=== PATIENT | female | born 1995 | race Caucasian/White ===

== ENCOUNTER 2016-12-01 00:59 | Inpatient (IN) | payer OTHER ==
[~2016-12-01] VITALS: Ht 165.1 cm; Wt 52.0 kg
[2016-12-01] VITALS (8 sets, daily range): BP systolic 98–138; BP diastolic 58–76; PULSE 78–119; RESP 16–18; TEMP 97.9–100; O2SAT 97–100
[2016-12-01] MEDS ORDERED: SODIUM CHLOR 0.9% 1000 ML INJ 1,000 ML IV SCH (01:43)
[2016-12-01] MEDS ORDERED: CLINDAMYCIN INJ 600 MG in SODIUM CHLORIDE 0.9% INJ 100 ML IV ONE (01:45)
[2016-12-01] MEDS ORDERED: SODIUM CHLORIDE 0.9% FLUSH 10 ML FLUSH IV FLUSH PRN ×2 (01:45→05:15)
[2016-12-01] MEDS ORDERED: MORPHINE SULFATE 4 MG/ML INJ IV PUSH ONE (01:45)
--- NOTE | 2016-12-01 02:11 | PD ---
HPI Chief Complaint: ENT Complaint Time Seen by Provider: 01:39 Travel History International Travel<30 days: No Contact w/Intl Traveler<30days: No Traveled to known affect area: No History of Present Illness HPI 21-year-old female here for evaluation of sore throat, right facial swelling, right submandibular swelling, fever. Patient reports URI symptoms about a week ago. For the last 2 days she has been having sore throat, right facial pain and swelling. She is able to swallow, however she states it is somewhat difficult and hurts. No history of IVDU. She has been taking a moderate amount of ibuprofen over the last 2 days with only mild improvement in pain. [facility] Past Medical History Medical History: Denies Significant Hx Tetanus Vaccination: < 5 Years Influenza Vaccination: No ?: Not LMP: 12/01/16 Past Surgical History Ear Surgery: Yes (tubes in ears as a child. ) Tonsillectomy: Yes (T&A) Social History Alcohol Use: Yes (socially) Tobacco Use: No (quit a few weeks ago) Substance Use: No Allergies-Medications (Allergen,Severity, Reaction): Coded Allergies: No Known Drug Allergies (Verified Allergy, Unknown, 12/01/16) Review of Systems Except as stated in HPI: all other systems reviewed are Neg Physical Exam Narrative GENERAL: Well-developed, well-nourished, no apparent distress. SKIN: Focused skin assessment warm/dry. HEAD: Normocephalic. Mild right cheek and right submandibular swelling. No induration. No overlying warmth or erythema. EYES: Pupils equal and round. No scleral icterus. No injection or drainage. ENT: Mucous membranes pink and moist. Normal dentition. Pharynx is erythematous without purulence or exudates. Uvula is midline. Normal phonation. No drooling or stridor. No sublingual swelling. Right tympanic membrane and external auditory canals normal. Left external auditory canal is normal. I am unable to visualize the left tympanic membrane secondary to cerumen impaction. NECK: Trachea midline. No JVD. No nuchal rigidity. Mild right cheek and right submandibular swelling without induration, warmth, or erythema. CARDIOVASCULAR: Tachycardic, rate 104, regular. RESPIRATORY: No accessory muscle use. Clear to auscultation. Breath sounds equal bilaterally. GASTROINTESTINAL: Abdomen soft, non-tender, nondistended. MUSCULOSKELETAL: No obvious deformities. No clubbing. No cyanosis. No edema. NEUROLOGICAL: Awake and alert. No obvious cranial nerve deficits. Motor grossly within normal limits. Normal speech. PSYCHIATRIC: Appropriate mood and affect; insight and judgment normal. Data Data Last Documented VS Vital Signs Date Time Temp Pulse Resp B/P (MAP) Pulse Ox O2 Delivery O2 Flow Rate FiO2 12/01/16 04:01 119 18 123/76 (92) 100 Room Air 12/01/16 01:45 99.0 Orders Orders Basic Metabolic Panel (Bmp) (12/01/16 01:43) Beta Hcg (Quant/Titer) (12/01/16 01:43) Complete Blood Count With Diff (12/01/16 01:43) Prothrombin Time / Inr (Pt) (12/01/16 01:43) Act Partial Throm Time (Ptt) (12/01/16 01:43) Iv Access Insert/Monitor (12/01/16 01:43) Ecg Monitoring (12/01/16 01:43) Oximetry (12/01/16 01:43) Sodium Chlor 0.9% 1000 Ml Inj (Ns 1000 M (12/01/16 01:43) Sodium Chloride 0.9% Flush (Ns Flush) (12/01/16 01:45) Morphine Inj (Morphine Inj) (12/01/16 01:45) Clindamycin Inj (Cleocin Inj) (12/01/16 01:45) Ct Soft Tiss Neck W Iv Cont (12/01/16 ) Group A Rapid Strep Screen (12/01/16 01:43) Ketorolac Inj (Toradol Inj) (12/01/16 02:45) Strep Culture (Group A) (12/01/16 01:50) Iohexol 350 Inj (Omnipaque 350 Inj) (12/01/16 03:01) Dexamethasone Inj (Decadron Inj) (12/01/16 04:00) Ceftriaxone Inj (Rocephin Inj) (12/01/16 04:00) Labs Laboratory Tests Test 12/01/16 01:50 White Blood Count 17.8 TH/MM3 Red Blood Count 4.52 MIL/MM3 Hemoglobin 14.1 GM/DL Hematocrit 41.7 % Mean Corpuscular Volume 92.3 FL Mean Corpuscular Hemoglobin 31.2 PG Mean Corpuscular Hemoglobin Concent 33.8 % Red Cell Distribution Width 12.6 % Platelet Count 241 TH/MM3 Mean Platelet Volume 9.1 FL Neutrophils (%) (Auto) 82.7 % Lymphocytes (%) (Auto) 10.0 % Monocytes (%) (Auto) 6.8 % Eosinophils (%) (Auto) 0.4 % Basophils (%) (Auto) 0.1 % Neutrophils # (Auto) 14.7 TH/MM3 Lymphocytes # (Auto) 1.8 TH/MM3 Monocytes # (Auto) 1.2 TH/MM3 Eosinophils # (Auto) 0.1 TH/MM3 Basophils # (Auto) 0.0 TH/MM3 CBC Comment DIFF FINAL Differential Comment Prothrombin Time 11.1 SEC Prothromb Time International Ratio 1.0 RATIO Activated Partial Thromboplast Time 30.2 SEC Blood Urea Nitrogen 9 MG/DL Creatinine 0.72 MG/DL Random Glucose 91 MG/DL Calcium Level 9.4 MG/DL Sodium Level 140 MEQ/L Potassium Level 3.6 MEQ/L Chloride Level 105 MEQ/L Carbon Dioxide Level 26.3 MEQ/L Anion Gap 9 MEQ/L Estimat Glomerular Filtration Rate 102 ML/MIN Human Chorionic Gonadotropin, Quant LESS THAN 1 MIU/ML MDM Medical Decision Making Medical Screen Exam Complete: Yes Emergency Medical Condition: Yes Differential Diagnosis Dental abscess, Madi angina, pharyngitis, retropharyngeal abscess, peritonsillar abscess Narrative Course Initial vital signs show heart rate 106, blood pressure 126/74, pulse ox 100% on room air, temporal artery scan of 100F. CBC is remarkable for WBC 17.8 with 83% neutrophils. BMP is unremarkable. CT soft tissue neck: CONCLUSION: 1. Large multiloculated ill-defined low density collection centered in the right pharyngeal mucosal space measuring 3.5 x 2.3 cm and extending cephalad to the retropharyngeal space with associated significant rightward deviation of the inferior oropharynx and associated cervical adenopathy. Group A strep is negative. Patient was given a dose of 600 mg of IV clindamycin and IV morphine shortly after arrival to the emergency department. After CT scan was resulted, case was discussed with on-call ENT Dr. Aldrich. He recommends giving the patient a dose of 12 mg of IV Decadron, 2 g of IV Rocephin. He would like the patient to receive 1 g of IV Rocephin every 12 hours and 900 mg of IV clindamycin every 8 hours. Patient be admitted to the medical service, and he will see the patient in consultation this morning. Case discussed with hospitalist Dr. Parnell who will admit the patient to his service. Diagnosis Primary Impression: Retropharyngeal abscess Admitting Information Admitting Physician Requests: Admit Yvon Cabrera MD Dec 01, 2016 02:11
[2016-12-01 02:27] LABS: AUTOMATED NEUTROPHIL # 14.7 TH/MM3 (1.8-7.7); BASOPHIL % 0.1 % (0.0-2.0); EOSINOPHIL # 0.1 TH/MM3 (0-0.4); EOSINOPHIL % 0.4 % (0.0-4.0); HEMATOCRIT 41.7 % (35.0-46.0); HEMO FLAGS DIFF FINAL; LYMPHOCYTE # 1.8 TH/MM3 (1.0-4.8); MEAN CELL VOLUME 92.3 FL (80.0-100.0); MEAN CORPUSCULAR HEMOGLOBIN 31.2 PG (27.0-34.0); MEAN CORPUSCULAR HGB CONC 33.8 % (32.0-36.0); MONO % 6.8 % (0.0-8.0); NEUT % 82.7 % (16.0-70.0); PLATELET COUNT 241 TH/MM3 (150-450); RED BLOOD COUNT 4.52 MIL/MM3 (4.00-5.30); RED CELL DISTRIBUTION WIDTH 12.6 % (11.6-17.2); WHITE BLOOD COUNT 17.8 TH/MM3 (4.0-11.0)
[2016-12-01 02:35] LABS: APTT (PATIENT) 30.2 SEC (24.3-30.1); PROTHROMBIN TIME - PATIENT 11.1 SEC (9.8-11.6)
[2016-12-01 02:37] LABS: ANION GAP 9 MEQ/L (5-15); BICARBONATE 26.3 MEQ/L (21.0-32.0); BLOOD UREA NITROGEN 9 MG/DL (7-18); CHLORIDE 105 MEQ/L (98-107); GLOMERULAR FILTRATION RATE 102 ML/MIN (>89); POTASSIUM 3.6 MEQ/L (3.5-5.1); SODIUM (NA) 140 MEQ/L (136-145)
[2016-12-01 02:40] LABS: BETA HCG QUANT LESS THAN 1 MIU/ML (0-5)
[2016-12-01] MEDS ORDERED: KETOROLAC TROMETHAMINE 30 MG/ML (IVP) VIAL IV PUSH ONE (02:45)
[2016-12-01] MEDS ORDERED: IOHEXOL 350 MG/ML 10 ML VIAL (for RAD DIAG) IVCONTRAST ONE (03:01)
--- NOTE | 2016-12-01 03:40 | RADRPT ---
EXAM DATE/TIME: 12/01/2016 02:58 [facility] COMPARISON: No previous studies available for comparison. INDICATIONS : Right sided neck swelling. IV CONTRAST: 63 cc Omnipaque 350 (iohexol) IV RADIATION DOSE: 17.33 CTDIvol (mGy) MEDICAL HISTORY : None SURGICAL HISTORY : Tonsillectomy. ENCOUNTER: Initial ACUITY: 3 days PAIN SCALE: 10/10 LOCATION: Right neck TECHNIQUE: Volumetric scanning of the neck was performed. Using automated exposure control and adjustment of th e mA and/or kV according to patient size, radiation dose was kept as low as reasonably achievable to obtain optimal diagnostic quality images. DICOM format image data is available electronically for r eview and comparison. FINDINGS: Examination is abnormal. There is a multiloculated ill-defined low density collection centered in the right pharyngeal mucosal space. This collection extends cephalad along the right retropharyngeal spa ce. The right retropharyngeal component measures approximately 1.5 x 0.7 cm. The collection measures 3.5 x 2.3 cm near the right hyoid bone and displaces the submucosal gland anteriorly. There is signif icant rightward deviation of the inferior oropharynx. There are multiple enlarged level II and III ly mph nodes the on the right. Visualized lung apices are clear. There carotid artery branches are patent. Osseous structures are in tact. The thyroid appears unremarkable. Visualized portions of the brain are unremarkable. CONCLUSION: 1. Large multiloculated ill-defined low density collection centered in the right pharyngeal mucosal s pace measuring 3.5 x 2.3 cm and extending cephalad to the retropharyngeal space with associated signi ficant rightward deviation of the inferior oropharynx and associated cervical adenopathy. Carlos Malloy MD on December 01, 2016 at 3:10 Board Certified Radiologist. This report was verified electronically.
[2016-12-01] MEDS ORDERED: cefTRIAXone INJ 2,000 MG in SODIUM CHLORIDE 0.9% INJ 100 ML IV ONE (04:00)
[2016-12-01] MEDS ORDERED: DEXAMETHASONE SOD PHOS 20 MG/5 ML VIAL IV PUSH ONE (04:00)
[2016-12-01] MEDS ORDERED: MORPHINE SULFATE 4 MG/ML INJ IV PRN (05:15)
[2016-12-01] MEDS ORDERED: ACETAMINOPHEN 325 MG TAB PO PRN ×2 (05:15→10:30)
[2016-12-01] MEDS ORDERED: ACETAMINOPHEN/HYDROcodone 325 MG/5 MG TAB PO PRN (05:15)
[2016-12-01] MEDS ORDERED: NALOXONE HCL 0.4 MG/ML AMP IV PRN (05:15)
[2016-12-01] MEDS ORDERED: cefTRIAXone INJ 1,000 MG in SODIUM CHLORIDE 0.9% INJ 100 ML IV SCH ×2 (05:15→17:00)
[2016-12-01] MEDS ORDERED: ONDANSETRON HCL 4 MG/2 ML VIAL IVP PRN (05:15)
[2016-12-01] MEDS: SODIUM CHLOR 0.9% 1000 ML INJ 1,000 ML IV SCH ×2 (05:33→17:08)
[2016-12-01] MEDS: DEXAMETHASONE SOD PHOS 4 MG/ML VIAL IV PUSH SCH ×3 (06:00→23:07)
[2016-12-01] MEDS: ACETAMINOPHEN/HYDROcodone 325 MG/7.5 MG TAB PO PRN ×3 (06:28→21:27)
[2016-12-01] MEDS: SODIUM CHLORIDE 0.9% FLUSH 10 ML FLUSH IV FLUSH SCH ×2 (09:00→21:26)
--- NOTE | 2016-12-01 10:28 | HHI.HP ---
HPI Service [facility] Primary Care Physician No Primary Care Physician Admission Diagnosis retropharyngeal abscess Diagnoses: (1) Sepsis (2) Retropharyngeal abscess Chief Complaint: Painful Right sided neck swelling Travel History International Travel<30 Days: No Contact w/Intl Traveler <30 Da: No Traveled to Known Affected Are: No Sepsis Criteria SIRS Criteria (2 or more): Heart rate over 90, WBC > 23727, < 4000 or > 10% bands Sepsis Criteria (SIRS+source): Infect source susp/known Criteria Outcome: Meets sepsis criteria History of Present Illness 21-year-old female presented yesterday to the ER for evaluation of worsening and painful right facial swelling as well as sore throat associated with dysphagia of both liquid and solid food along with odynophagia. Patient reported upper respiratory infection symptoms about a week ago, over over the past 2 days she's been having severe sore throat and right facial pain as well as swelling which did not improve with ibuprofen. She also reported subjective fevers. She denies any sick contact. She had no hemoptysis, GI bleeding. She also denies any shortness of breath. Review of Systems Except as stated in HPI: all other systems reviewed are Neg Past Family Social History Past Medical History No previous medical history Past Surgical History Ear Surgery: Yes (tubes in ears as a child. ) Tonsillectomy: Yes (T&A) Reported Medications Ibuprofen when necessary Allergies: Coded Allergies: No Known Drug Allergies (Verified Allergy, Unknown, 12/01/16) Family History She denies any family history of hypertension, diabetes, hyperlipidemia Social History Alcohol Use: Yes (socially) Tobacco Use: No (quit a few weeks ago) Substance Use: No Physical Exam Vital Signs Vital Signs Date Time Temp Pulse Resp B/P (MAP) Pulse Ox O2 Delivery O2 Flow Rate FiO2 12/01/16 08:30 98.4 89 16 117/69 (85) 97 12/01/16 08:19 12/01/16 07:29 98.1 93 16 121/70 (87) 100 Room Air 12/01/16 07:28 16 12/01/16 06:09 21 12/01/16 04:01 119 18 123/76 (92) 100 Room Air 12/01/16 02:15 20 12/01/16 01:45 99.0 119 17 138/76 (96) 100 Room Air 12/01/16 01:41 17 12/01/16 01:01 100.0 106 18 126/74 (91) 100 Physical Exam GENERAL: This is a well-nourished, well-developed patient, in no apparent distress. SKIN: No rashes, ecchymoses or lesions. Cool and dry. HEAD: Atraumatic. Normocephalic. No temporal or scalp tenderness. EYES: Pupils equal round and reactive. Extraocular motions intact. No scleral icterus. No injection or drainage. ENT: Nose without bleeding, purulent drainage or septal hematoma. + tonsillar with exudate. Uvula midline. Airway patent. NECK: Trachea midline. + lymphadenopathy. Supple, +tender right neck, no meningeal signs. CARDIOVASCULAR: Regular rate and rhythm without murmurs, gallops, or rubs. RESPIRATORY: Clear to auscultation. Breath sounds equal bilaterally. No wheezes , rales, or rhonchi. GASTROINTESTINAL: Abdomen soft, non-tender, nondistended. No hepato-splenomegaly , or palpable masses. No guarding. MUSCULOSKELETAL: Extremities without clubbing, cyanosis, or edema. No joint tenderness, effusion, or edema noted. No calf tenderness. Negative Homans sign bilaterally. NEUROLOGICAL: Awake and alert. Cranial nerves II through XII intact. Motor and sensory grossly within normal limits. Five out of 5 muscle strength in all muscle groups. Normal speech. Laboratory Laboratory Tests Test 12/01/16 01:50 White Blood Count 17.8 Red Blood Count 4.52 Hemoglobin 14.1 Hematocrit 41.7 Mean Corpuscular Volume 92.3 Mean Corpuscular Hemoglobin 31.2 Mean Corpuscular Hemoglobin Concent 33.8 Red Cell Distribution Width 12.6 Platelet Count 241 Mean Platelet Volume 9.1 Neutrophils (%) (Auto) 82.7 Lymphocytes (%) (Auto) 10.0 Monocytes (%) (Auto) 6.8 Eosinophils (%) (Auto) 0.4 Basophils (%) (Auto) 0.1 Neutrophils # (Auto) 14.7 Lymphocytes # (Auto) 1.8 Monocytes # (Auto) 1.2 Eosinophils # (Auto) 0.1 Basophils # (Auto) 0.0 CBC Comment DIFF FINAL Differential Comment Prothrombin Time 11.1 Prothromb Time International Ratio 1.0 Activated Partial Thromboplast Time 30.2 Blood Urea Nitrogen 9 Creatinine 0.72 Random Glucose 91 Calcium Level 9.4 Sodium Level 140 Potassium Level 3.6 Chloride Level 105 Carbon Dioxide Level 26.3 Anion Gap 9 Estimat Glomerular Filtration Rate 102 Human Chorionic Gonadotropin, Quant LESS THAN 1 Date/Time Source Procedure Growth Status 12/01/16 01:50 Throat Group A Streptococcus Screen Pending Received Result Diagram: 12/01/16 0150 12/01/16 0150 Imaging Last Impressions Neck CT 12/01/16 0000 Signed Impressions: Service Date/Time: Thursday, December 01, 2016 02:58 - CONCLUSION: 1. Large multiloculated ill-defined low density collection centered in the right pharyngeal mucosal space measuring 3.5 x 2.3 cm and extending cephalad to the retropharyngeal space with associated significant rightward deviation of the inferior oropharynx and associated cervical adenopathy. Carlos Malloy MD Septic Shock Reassessment Heart: Regular rate and rhythm Lungs: Clear Skin: Warm Capillary Refill: >2 seconds Caprini VTE Risk Assessment Caprini VTE Risk Assessment: No/Low Risk (score <= 1) Caprini Risk Assessment Model Point Value = 1 Point Value = 2 Point Value = 3 Point Value = 5 Age 41-60 Minor surgery BMI > 25 kg/m2 Swollen legs Varicose veins or History of unexplained or recurrent spontaneous Oral contraceptives or hormone replacement Sepsis (< 1 month) Serious lung disease, including pneumonia (< 1 month) Abnormal pulmonary function Acute myocardial infarction Congestive heart failure (< 1 month) History of inflammatory bowel disease Medical patient at bed rest Age 61-74 Arthroscopic surgery Major open surgery (> 45 min) Laparoscopic surgery (> 45 min) Malignancy Confined to bed (> 72 hours) Immobilizing plaster cast Central venous access Age >= 75 History of VTE Family history of VTE Factor V Leiden Prothrombin [id number] Lupus anticoagulant Anticardiolipin antibodies Elevated serum homocysteine Heparin-induced thrombocytopenia Other congenital or acquired thrombophilia Stroke (< 1 month) Elective arthroplasty Hip, pelvis, or leg fracture Acute spinal cord injury (< 1 month) Prophylaxis Regimen Total Risk Factor Score Risk Level Prophylaxis Regimen 0-1 Low Early ambulation 2 Moderate Order ONE of the following: *Sequential Compression Device (SCD) *Heparin 5000 units SQ BID 3-4 Higher Order ONE of the following medications: *Heparin 5000 units SQ TID *Enoxaparin/Lovenox 40 mg SQ daily (WT < 150 kg, CrCl > 30 mL/min) *Enoxaparin/Lovenox 30 mg SQ daily (WT < 150 kg, CrCl > 10-29 mL/min) *Enoxaparin/Lovenox 30 mg SQ BID (WT < 150 kg, CrCl > 30 mL/min) AND/OR *Sequential Compression Device (SCD) 5 or more Highest Order ONE of the following medications: *Heparin 5000 units SQ TID (Preferred with Epidurals) *Enoxaparin/Lovenox 40 mg SQ daily (WT < 150 kg, CrCl > 30 mL/min) *Enoxaparin/Lovenox 30 mg SQ daily (WT < 150 kg, CrCl > 10-29 mL/min) *Enoxaparin/Lovenox 30 mg SQ BID (WT < 150 kg, CrCl > 30 mL/min) AND *Sequential Compression Device (SCD) Assessment and Plan Problem List: (1) Retropharyngeal abscess ICD Code: J39.0 - Retropharyngeal and parapharyngeal abscess Status: Acute (2) Sepsis ICD Code: A41.9 - Sepsis, unspecified organism Assessment and Plan 21-year-old female with Sepsis:Meets sepsis criteria; Heart rate over 90, WBC > 09056, < 4000 or > 10% bands; Infect source susp/known(retropharyngeal abscess); check lactic acid. Status post clindamycin, and currently on Rocephin IV every 12 hours and Clindamycin 800mg Q8H pending culture report Right pharyngeal mucosal space abscess Retropharyngeal abscess Neck CT noted and review by me with finding of right pharyngeal mucosal space abscess Currently on Rocephin, Clindamycin and Decadron IV pending culture report ENT consultation pending Continue with nothing by mouth, IV fluid hydration and parenteral pain medications DVT prophylaxis: Low risk for VTE, encourage ambulation Code Status Full code Discussed Condition With Patient Physician Certification 2 Midnight Certification Type: Continued Stay Order for Inpatient Services The services are ordered in accordance with Medicare regulations or non- Medicare payer requirements, as applicable. In the case of services not specified as inpatient-only, they are appropriately provided as inpatient services in accordance with the 2-midnight benchmark. Estimated LOS (days): 2 days is the estimated time the patient will need to remain in the hospital, assuming treatment plan goals are met and no additional complications. Post-Hospital Plan: Not yet determined Lawrence Curtis MD Dec 01, 2016 10:28
[2016-12-01] MEDS ORDERED: ONDANSETRON HCL 4 MG/2 ML VIAL IV PRN (10:30)
[2016-12-01] MEDS ORDERED: DOCUSATE SODIUM 50 MG/SENNA 8.6 MG TAB PO PRN (10:30)
[2016-12-01] MEDS ORDERED: CLINDAMYCIN INJ 600 MG in SODIUM CHLORIDE 0.9% INJ 100 ML IV SCH (14:00)
[2016-12-01] MEDS: cefTRIAXone 2,000 MG/NS 100 ML IV SCH ×2 (17:08)
[2016-12-01] MEDS: CLINDAMYCIN INJ 900 MG in SODIUM CHLORIDE 0.9% INJ 100 ML IV SCH (23:17)
[2016-12-02] VITALS (10 sets, daily range): BP systolic 96–117; BP diastolic 50–72; PULSE 62–90; RESP 16–18; TEMP 98–98.4; O2SAT 97–100
[2016-12-02] MEDS: cefTRIAXone 2,000 MG/NS 100 ML IV SCH ×4 (05:12→17:00)
[2016-12-02] MEDS: CLINDAMYCIN INJ 900 MG in SODIUM CHLORIDE 0.9% INJ 100 ML IV SCH ×5 (06:20→17:17)
[2016-12-02] MEDS: ACETAMINOPHEN/HYDROcodone 325 MG/7.5 MG TAB PO PRN ×2 (06:28→17:17)
[2016-12-02] MEDS: DEXAMETHASONE SOD PHOS 4 MG/ML VIAL IV PUSH SCH ×3 (06:29→17:17)
[2016-12-02] MEDS: SODIUM CHLOR 0.9% 1000 ML INJ 1,000 ML IV SCH ×2 (07:22→21:40)
[2016-12-02] MEDS: SODIUM CHLORIDE 0.9% FLUSH 10 ML FLUSH IV FLUSH SCH ×2 (07:59→21:00)
[2016-12-02 08:55] LABS: AUTOMATED NEUTROPHIL # 20.7 TH/MM3 (1.8-7.7); HEMATOCRIT 36.3 % (35.0-46.0); HEMO FLAGS DIFF FINAL; LYMPH % 6.1 % (9.0-44.0); LYMPHOCYTE # 1.4 TH/MM3 (1.0-4.8); MEAN CELL VOLUME 93.6 FL (80.0-100.0); MEAN CORPUSCULAR HEMOGLOBIN 30.5 PG (27.0-34.0); MEAN CORPUSCULAR HGB CONC 32.6 % (32.0-36.0); MONO % 3.3 % (0.0-8.0); NEUT % 90.6 % (16.0-70.0); PLATELET COUNT 228 TH/MM3 (150-450); RED BLOOD COUNT 3.88 MIL/MM3 (4.00-5.30); RED CELL DISTRIBUTION WIDTH 12.4 % (11.6-17.2); WHITE BLOOD COUNT 22.9 TH/MM3 (4.0-11.0)
[2016-12-02 09:10] LABS: BICARBONATE 22.1 MEQ/L (21.0-32.0); POTASSIUM 4.3 MEQ/L (3.5-5.1)
--- NOTE | 2016-12-02 10:02 | HHI.PR ---
Subjective Remarks Follow-up right retropharyngeal abscess 12/02/16-patient seen and examined the report improvement of right facial pain as well as odynophagia. She is currently nothing by mouth, and is afebrile. Objective Vitals Vital Signs Date Time Temp Pulse Resp B/P (MAP) Pulse Ox O2 Delivery O2 Flow Rate FiO2 12/02/16 07:54 98.1 81 16 107/63 (78) 99 12/02/16 07:39 98 21 12/02/16 07:35 20 12/02/16 04:11 98.0 62 18 117/72 (87) 98 12/02/16 03:34 21 12/02/16 00:31 98.0 78 16 97/72 (80) 100 12/01/16 20:35 97.9 81 18 98/68 (78) 99 12/01/16 16:03 97.9 78 16 121/71 (88) 99 12/01/16 11:43 98.1 95 16 105/58 (74) 100 I/O 12/01/16 12/01/16 12/01/16 12/02/16 12/02/16 12/02/16 07:00 15:00 23:00 07:00 15:00 23:00 Intake Total 1204 ml 104 ml 100 ml Balance 1204 ml 104 ml 100 ml Intake IV Total 1204 ml 104 ml 100 ml # Voids 2 Result Diagram: 12/02/16 0700 12/02/16 0700 Imaging Last Impressions Neck CT 12/01/16 0000 Signed Impressions: Service Date/Time: Thursday, December 01, 2016 02:58 - CONCLUSION: 1. Large multiloculated ill-defined low density collection centered in the right pharyngeal mucosal space measuring 3.5 x 2.3 cm and extending cephalad to the retropharyngeal space with associated significant rightward deviation of the inferior oropharynx and associated cervical adenopathy. Carlos Malloy MD Objective Remarks GENERAL: NAD SKIN: Warm and dry. HEAD: Normocephalic. EYES: No scleral icterus. No injection or drainage. NECK: Supple, trachea midline. + lymphadenopathy. Slight improvement of right facial swelling CARDIOVASCULAR: Regular rate and rhythm without murmurs, gallops, or rubs. RESPIRATORY: Breath sounds equal bilaterally. No accessory muscle use. GASTROINTESTINAL: Abdomen soft, non-tender, nondistended. MUSCULOSKELETAL: No cyanosis, or edema. BACK: Nontender without obvious deformity. No CVA tenderness. A/P Problem List: (1) Retropharyngeal abscess ICD Code: J39.0 - Retropharyngeal and parapharyngeal abscess Status: Acute (2) Sepsis ICD Code: A41.9 - Sepsis, unspecified organism Assessment and Plan 21-year-old female with Sepsis:Meets sepsis criteria; Heart rate over 90, WBC > 62918, < 4000 or > 10% bands; Infect source susp/known(retropharyngeal abscess); lactic acid within normal limit. currently on Rocephin IV every 12 hours and Clindamycin 800mg Q8H pending culture report Right pharyngeal mucosal space abscess Retropharyngeal abscess Neck CT with finding of right pharyngeal mucosal space abscess Currently on Rocephin, Clindamycin and Decadron IV pending culture report ENT consultation appreciated and plan for possible incision and drainage today 12/02/16 Currently nothing by mouth, IV fluid hydration and parenteral pain medications Leukocytosis Worsening leukocytosis likely secondary to steroid versus infectious process Continue to monitor CBC DVT prophylaxis: Low risk for VTE, encourage ambulation Lawrence Curtis MD Dec 02, 2016 10:02
[2016-12-02] MEDS ORDERED: ONDANSETRON HCL 4 MG/2 ML VIAL IV PUSH ONE (12:00)
[2016-12-02] MEDS ORDERED: PROPOFOL 200 MG/20 ML AMP IV ONE (12:00)
[2016-12-02] MEDS ORDERED: MIDAZOLAM HCL 2 MG/2 ML VIAL ONE (13:30)
[2016-12-02] MEDS ORDERED: ACETAMINOPHEN 1000 MG/100 ML 100 ML IV ONE (13:30)
[2016-12-02] MEDS ORDERED: OXYMETAZOLINE HCL 0.05% 15 ML NASAL SPRAY ONE (13:35)
[2016-12-02] MEDS ORDERED: DO NOT ADM ANY ANTICOAGULANT DRUGS PRN (14:49)
[2016-12-02] MEDS ORDERED: CLINDAMYCIN INJ 900 MG in SODIUM CHLORIDE 0.9% INJ 100 ML IV SCH (17:00)
[2016-12-02] MEDS: cefTRIAXone 1,000 MG/NS 100 ML IV SCH ×2 (17:00)
[2016-12-02 19:13] LABS: FREE T4 1.44 NG/DL (0.76-1.46)
--- NOTE | 2016-12-02 19:28 | RADRPT ---
EXAM DATE/TIME: 12/02/2016 18:58 [facility] COMPARISON: No previous studies available for comparison. INDICATIONS : Possible mass. MEDICAL HISTORY : Right facial pain. Throat pain. SURGICAL HISTORY : Tonsillectomy. Ear tubes. Retropharyngeal abscess drainage. ENCOUNTER: Initial ACUITY: 1 day PAIN SCORE: 7/10 LOCATION: Bilateral neck MEASUREMENTS: RIGHT LOBE: 5.1 x 1.5 x 1.2 cm LEFT LOBE: 4.7 x 1.2 x 0.9 cm FINDINGS: RIGHT LOBE: Homogeneous echotexture without nodules or cysts. Vascularity is within normal limits. LEFT LOBE: Homogeneous echotexture without nodules or cysts. Vascularity is within normal limits. ISTHMUS: Normal in size without focal abnormality. CONCLUSION: Normal examination for a patient of this age. Jerry Smith MD on December 02, 2016 at 19:26 Board Certified Radiologist. This report was verified electronically.
[2016-12-03] VITALS (9 sets, daily range): BP systolic 103–115; BP diastolic 55–90; PULSE 56–126; RESP 16–18; TEMP 97.4–98.7; O2SAT 94–99
[2016-12-03] MEDS: ACETAMINOPHEN/HYDROcodone 325 MG/7.5 MG TAB PO PRN (03:43)
[2016-12-03] MEDS: SODIUM CHLOR 0.9% 1000 ML INJ 1,000 ML IV SCH (03:47)
[2016-12-03] MEDS: cefTRIAXone 1,000 MG/NS 100 ML IV SCH ×2 (04:35)
[2016-12-03] MEDS: DEXAMETHASONE SOD PHOS 4 MG/ML VIAL IV PUSH SCH (05:26)
--- NOTE | 2016-12-03 08:13 | MB ---
cc: MARGARET SYED M.D., ERIC DATE OF CONSULTATION: December 01, 2016 REASON FOR ENT CONSULTATION Retropharyngeal abscess, requested by Dr. Curtis. HISTORY OF PRESENT ILLNESS Gricelda Crowder is a previously healthy 21-year-old woman who complains of several days of progressive sharp pain in her right hypopharynx and neck and pain extending into the right side of her face. She notes swelling in the right side of her neck. She has had no airway compromise but she complains of pain with swallowing. She had a recent viral upper respiratory infection but otherwise has been healthy. She presented to the emergency room early on December [address] scan revealed edema and phlegmon in the right hypopharynx but no discrete abscess present. The inflammation involving the right pyriform sinus extending toward the right base of tongue. There was no significant airway compromise. The patient reports she had her tonsils removed at age [age]. PAST MEDICAL HISTORY She has no significant medical history. PAST SURGICAL HISTORY Only as noted above. MEDICATIONS Medications are Motrin as necessary. ALLERGIES No known drug allergies. 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 PHYSICAL EXAMINATION GENERAL: She is alert and cooperative, in no apparent distress. VITAL SIGNS: Temperature is 98.4, pulse 90, respirations 16, BP 117/69, pulse oximetry 97% on room air. HEAD: Head is normocephalic, atraumatic. ORAL CAVITY: Teeth in good condition. There is no sign of inflammation in the oropharynx. Tonsils are surgically absent. Mandible is moderately retrognathic. NECK: Larynx and trachea midline. There is tenderness in the right submandibular triangle but no fluctuance, no erythema. Full range of motion of neck. EARS: Normal auricles, ear canals and tympanic membranes. NOSE: Flexible fiberoptic nasopharyngoscopy shows deviation of septum bilaterally. HYPOPHARYNX: The patient cannot tolerate complete examination of the hypopharynx. There is inflammation apparent but definitive exam could not be completed. LABORATORY White count is 17,000.8 ASSESSMENT Right hypopharyngeal cellulitis. PLAN Discussed with the admitting staff recommending she be treated aggressively with antibiotic therapy including Rocephin 2 grams every 12 hours, clindamycin 900 mg every 8 hours and Decadron 10 mg, a one-time dose to start her treatment. I will follow with her in house. MD KIRSTY Johnston/KEREN /7:05 AM 7:55 AM
[2016-12-03] MEDS ORDERED: HYDR-3288 PO (08:30)
[2016-12-03] MEDS ORDERED: AUGM875T3 PO (08:30)
--- NOTE | 2016-12-03 08:33 | HHI.DS ---
Discharge Summary Admission Date Dec 01, 2016 at 05:04 Admitting Diagnosis retropharyngeal abscess (1) Retropharyngeal abscess ICD Code: J39.0 - Retropharyngeal and parapharyngeal abscess Status: Acute (2) Sepsis ICD Code: A41.9 - Sepsis, unspecified organism Brief History - From Admission 21-year-old female presented yesterday to the ER for evaluation of worsening and painful right facial swelling as well as sore throat associated with dysphagia of both liquid and solid food along with odynophagia. Patient reported upper respiratory infection symptoms about a week ago, over over the past 2 days she's been having severe sore throat and right facial pain as well as swelling which did not improve with ibuprofen. She also reported subjective fevers. She denies any sick contact. She had no hemoptysis, GI bleeding. She also denies any shortness of breath. CBC/BMP: 12/02/16 0700 12/02/16 0700 Significant Findings Laboratory Tests Test 12/01/16 01:50 12/01/16 12:43 12/02/16 07:00 White Blood Count 17.8 TH/MM3 (4.0-11.0) 22.9 TH/MM3 (4.0-11.0) Neutrophils (%) (Auto) 82.7 % (16.0-70.0) 90.6 % (16.0-70.0) Neutrophils # (Auto) 14.7 TH/MM3 (1.8-7.7) 20.7 TH/MM3 (1.8-7.7) Monocytes # (Auto) 1.2 TH/MM3 (0-0.9) Activated Partial Thromboplast Time 30.2 SEC (24.3-30.1) Red Blood Count 3.88 MIL/MM3 (4.00-5.30) Lymphocytes (%) (Auto) 6.1 % (9.0-44.0) Creatinine 0.41 MG/DL (0.50-1.00) Random Glucose 130 MG/DL (74-106) Calcium Level 8.3 MG/DL (8.5-10.1) Thyroid Stimulating Hormone 3rd Gen 0.329 uIU/ML (0.358-3.740) PE at Discharge GENERAL: NAD SKIN: Warm and dry. HEAD: Normocephalic. EYES: No scleral icterus. No injection or drainage. NECK: Supple, trachea midline. + lymphadenopathy. Slight improvement of right facial swelling CARDIOVASCULAR: Regular rate and rhythm without murmurs, gallops, or rubs. RESPIRATORY: Breath sounds equal bilaterally. No accessory muscle use. GASTROINTESTINAL: Abdomen soft, non-tender, nondistended. MUSCULOSKELETAL: No cyanosis, or edema. BACK: Nontender without obvious deformity. No CVA tenderness. Discharge Disposition: Discharge Home Discharge Instructions DIET: Follow Instructions for: Heart Healthy Diet Activities you can perform: Regular-No Restrictions Lawrence Curtis MD Dec 03, 2016 08:33
--- NOTE | 2016-12-03 08:33 | HHI.PR ---
Subjective Remarks Follow-up right retropharyngeal abscess 12/02/16-patient seen and examined the report improvement of right facial pain as well as odynophagia. She is currently nothing by mouth, and is afebrile. Objective Vitals Vital Signs Date Time Temp Pulse Resp B/P (MAP) Pulse Ox O2 Delivery O2 Flow Rate FiO2 12/03/16 08:22 99 21 12/03/16 07:22 98.1 57 16 107/68 (81) 98 12/03/16 07:00 79 12/03/16 06:32 96 12/03/16 05:22 97.4 56 17 103/55 (71) 96 12/03/16 04:00 81 12/03/16 01:21 98.7 63 17 115/74 (88) 97 12/03/16 00:00 72 12/02/16 20:51 98.4 85 18 113/70 (84) 100 12/02/16 20:00 72 12/02/16 18:25 22 12/02/16 16:13 98.2 90 18 112/58 (76) 100 12/02/16 15:39 98.4 85 14 113/63 (80) 100 Nasal Cannula 2 12/02/16 15:30 81 18 102/60 (74) 100 Nasal Cannula 2 12/02/16 15:15 75 17 102/61 (75) 100 Nasal Cannula 2 12/02/16 15:00 83 14 108/64 (79) 100 Nasal Cannula 3 12/02/16 14:45 95 16 124/74 (91) 100 Mechanical Ventilator 40 12/02/16 14:40 98.1 92 16 130/71 (90) 100 Mechanical Ventilator 40 12/02/16 14:40 40 12/02/16 14:40 97 40 12/02/16 12:17 98.3 90 16 96/50 (65) 99 12/02/16 10:36 68 I/O 12/02/16 12/02/16 12/02/16 12/03/16 12/03/16 12/03/16 06:59 14:59 22:59 06:59 14:59 22:59 Intake Total 700 ml 700 ml Output Total 260 ml Balance 700 ml 440 ml Intake IV Total 100 ml 100 ml Other 600 ml 600 ml Output Urine Total 250 ml Estimated Blood Loss 10 ml # Voids 2 Result Diagram: 12/02/16 0700 12/02/16 0700 Objective Remarks GENERAL: NAD SKIN: Warm and dry. HEAD: Normocephalic. EYES: No scleral icterus. No injection or drainage. NECK: Supple, trachea midline. + lymphadenopathy. Slight improvement of right facial swelling CARDIOVASCULAR: Regular rate and rhythm without murmurs, gallops, or rubs. RESPIRATORY: Breath sounds equal bilaterally. No accessory muscle use. GASTROINTESTINAL: Abdomen soft, non-tender, nondistended. MUSCULOSKELETAL: No cyanosis, or edema. BACK: Nontender without obvious deformity. No CVA tenderness. A/P Problem List: (1) Retropharyngeal abscess ICD Code: J39.0 - Retropharyngeal and parapharyngeal abscess Status: Acute (2) Sepsis ICD Code: A41.9 - Sepsis, unspecified organism Assessment and Plan 21-year-old female with Sepsis:Meets sepsis criteria; Heart rate over 90, WBC > 32068, < 4000 or > 10% bands; Infect source susp/known(retropharyngeal abscess); lactic acid within normal limit. currently on Rocephin IV every 12 hours and Clindamycin 800mg Q8H pending culture report Right pharyngeal mucosal space abscess Retropharyngeal abscess Neck CT with finding of right pharyngeal mucosal space abscess Currently on Rocephin, Clindamycin and Decadron IV pending culture report ENT consultation appreciated and plan for possible incision and drainage today 12/02/16 Currently nothing by mouth, IV fluid hydration and parenteral pain medications Leukocytosis Worsening leukocytosis likely secondary to steroid versus infectious process Continue to monitor CBC DVT prophylaxis: Low risk for VTE, encourage ambulation Problem Qualifiers (1) Sepsis: Qualified Codes: A41.9 - Sepsis, unspecified organism Lawrence Curtis MD Dec 03, 2016 08:33
--- NOTE | 2016-12-03 09:15 | HHI.PR ---
Subjective Remarks Follow-up right retropharyngeal abscess 12/02/16-patient seen and examined the report improvement of right facial pain as well as odynophagia. She is currently nothing by mouth, and is afebrile. 12/03/16-patient seen and examined, she still complains of right facial swelling and pain. Patient states she is very upset with services received since admission. Apparently patient had an argument with Dr. Aldrich yesterday. Patient was initially taken to the OR, however any plan procedure was cancelled. Initially, he was reported to me that Dr. Aldrich didn't appreciate any drainable abscess and felt patient could be managed medically. Upon talking to patient's about this finding back in her room, she got very upset with Dr. Aldrich and both of them got into an argument. It was reported to me by the nurse taking care of patient yesterday, that patient had a thyroid mass. I then proceeded to order thyroid ultrasound to rule out not finding. Objective Vitals Vital Signs Date Time Temp Pulse Resp B/P (MAP) Pulse Ox O2 Delivery O2 Flow Rate FiO2 12/03/16 08:22 99 21 12/03/16 07:22 98.1 57 16 107/68 (81) 98 12/03/16 07:00 79 12/03/16 06:32 96 12/03/16 05:22 97.4 56 17 103/55 (71) 96 12/03/16 04:00 81 12/03/16 01:21 98.7 63 17 115/74 (88) 97 12/03/16 00:00 72 12/02/16 20:51 98.4 85 18 113/70 (84) 100 12/02/16 20:00 72 12/02/16 18:25 22 12/02/16 16:13 98.2 90 18 112/58 (76) 100 12/02/16 15:39 98.4 85 14 113/63 (80) 100 Nasal Cannula 2 12/02/16 15:30 81 18 102/60 (74) 100 Nasal Cannula 2 12/02/16 15:15 75 17 102/61 (75) 100 Nasal Cannula 2 12/02/16 15:00 83 14 108/64 (79) 100 Nasal Cannula 3 12/02/16 14:45 95 16 124/74 (91) 100 Mechanical Ventilator 40 12/02/16 14:40 98.1 92 16 130/71 (90) 100 Mechanical Ventilator 40 12/02/16 14:40 40 12/02/16 14:40 97 40 12/02/16 12:17 98.3 90 16 96/50 (65) 99 12/02/16 10:36 68 I/O 12/02/16 12/02/16 12/02/16 12/03/16 12/03/16 12/03/16 07:00 15:00 23:00 07:00 15:00 23:00 Intake Total 700 ml 700 ml Output Total 260 ml Balance 700 ml 440 ml Intake IV Total 100 ml 100 ml Other 600 ml 600 ml Output Urine Total 250 ml Estimated Blood Loss 10 ml # Voids 2 Result Diagram: 12/02/16 0700 12/02/16 0700 Imaging Last Impressions Thyroid Ultrasound 12/02/16 0000 Signed Impressions: Service Date/Time: Friday, December 02, 2016 18:58 - CONCLUSION: Normal examination for a patient of this age. Jerry Smith MD Neck CT 12/01/16 0000 Signed Impressions: Service Date/Time: Thursday, December 01, 2016 02:58 - CONCLUSION: 1. Large multiloculated ill-defined low density collection centered in the right pharyngeal mucosal space measuring 3.5 x 2.3 cm and extending cephalad to the retropharyngeal space with associated significant rightward deviation of the inferior oropharynx and associated cervical adenopathy. Carlos Malloy MD Objective Remarks GENERAL: NAD SKIN: Warm and dry. HEAD: Normocephalic. EYES: No scleral icterus. No injection or drainage. NECK: Supple, trachea midline. + lymphadenopathy. Slight improvement of right facial swelling CARDIOVASCULAR: Regular rate and rhythm without murmurs, gallops, or rubs. RESPIRATORY: Breath sounds equal bilaterally. No accessory muscle use. GASTROINTESTINAL: Abdomen soft, non-tender, nondistended. MUSCULOSKELETAL: No cyanosis, or edema. BACK: Nontender without obvious deformity. No CVA tenderness. Procedures none A/P Problem List: (1) Retropharyngeal abscess ICD Code: J39.0 - Retropharyngeal and parapharyngeal abscess Status: Acute (2) Sepsis ICD Code: A41.9 - Sepsis, unspecified organism Assessment and Plan 21-year-old female with Sepsis:Meets sepsis criteria; Heart rate over 90, WBC > 82762, < 4000 or > 10% bands; Infect source susp/known(retropharyngeal abscess); lactic acid within normal limit. currently on Rocephin IV every 12 hours and Clindamycin 800mg Q8H pending culture report Right pharyngeal mucosal space abscess Retropharyngeal abscess Neck CT with finding of right pharyngeal mucosal space abscess Currently on Rocephin, Clindamycin and Decadron IV pending culture report ENT consultation appreciated; however on 12/02/16 per ENT there was no longer any drainable abscess. It has been recommended to treat patient medically with by mouth antibiotic and discharge her on Augmentin with instructions to follow-up outpatient ENT Leukocytosis Worsening leukocytosis likely secondary to steroid versus infectious process Continue to monitor CBC DVT prophylaxis: Low risk for VTE, encourage ambulation Problem Qualifiers (1) Sepsis: Qualified Codes: A41.9 - Sepsis, unspecified organism Lawrence Curtis MD Dec 03, 2016 09:15
--- NOTE | 2016-12-03 09:17 | HHI.DS ---
Discharge Summary Admission Date Dec 01, 2016 at 05:04 Discharge Date: Dec 03, 2016 Admitting Diagnosis retropharyngeal abscess (1) Retropharyngeal abscess ICD Code: J39.0 - Retropharyngeal and parapharyngeal abscess Status: Acute (2) Sepsis ICD Code: A41.9 - Sepsis, unspecified organism Procedures none Brief History - From Admission 21-year-old female presented yesterday to the ER for evaluation of worsening and painful right facial swelling as well as sore throat associated with dysphagia of both liquid and solid food along with odynophagia. Patient reported upper respiratory infection symptoms about a week ago, over over the past 2 days she's been having severe sore throat and right facial pain as well as swelling which did not improve with ibuprofen. She also reported subjective fevers. She denies any sick contact. She had no hemoptysis, GI bleeding. She also denies any shortness of breath. CBC/BMP: 12/02/16 0700 12/02/16 0700 Significant Findings Laboratory Tests Test 12/01/16 01:50 12/01/16 12:43 12/02/16 07:00 White Blood Count 17.8 TH/MM3 (4.0-11.0) 22.9 TH/MM3 (4.0-11.0) Neutrophils (%) (Auto) 82.7 % (16.0-70.0) 90.6 % (16.0-70.0) Neutrophils # (Auto) 14.7 TH/MM3 (1.8-7.7) 20.7 TH/MM3 (1.8-7.7) Monocytes # (Auto) 1.2 TH/MM3 (0-0.9) Activated Partial Thromboplast Time 30.2 SEC (24.3-30.1) Red Blood Count 3.88 MIL/MM3 (4.00-5.30) Lymphocytes (%) (Auto) 6.1 % (9.0-44.0) Creatinine 0.41 MG/DL (0.50-1.00) Random Glucose 130 MG/DL (74-106) Calcium Level 8.3 MG/DL (8.5-10.1) Thyroid Stimulating Hormone 3rd Gen 0.329 uIU/ML (0.358-3.740) Imaging Last Impressions Thyroid Ultrasound 12/02/16 0000 Signed Impressions: Service Date/Time: Friday, December 02, 2016 18:58 - CONCLUSION: Normal examination for a patient of this age. Jerry Smith MD Neck CT 12/01/16 0000 Signed Impressions: Service Date/Time: Thursday, December 01, 2016 02:58 - CONCLUSION: 1. Large multiloculated ill-defined low density collection centered in the right pharyngeal mucosal space measuring 3.5 x 2.3 cm and extending cephalad to the retropharyngeal space with associated significant rightward deviation of the inferior oropharynx and associated cervical adenopathy. Carlos Malloy MD PE at Discharge GENERAL: NAD SKIN: Warm and dry. HEAD: Normocephalic. EYES: No scleral icterus. No injection or drainage. NECK: Supple, trachea midline. + lymphadenopathy. Slight improvement of right facial swelling CARDIOVASCULAR: Regular rate and rhythm without murmurs, gallops, or rubs. RESPIRATORY: Breath sounds equal bilaterally. No accessory muscle use. GASTROINTESTINAL: Abdomen soft, non-tender, nondistended. MUSCULOSKELETAL: No cyanosis, or edema. BACK: Nontender without obvious deformity. No CVA tenderness. Hospital Course Patient was admitted secondary to sepsis due to right retropharyngeal abscess for which ENT was consulted and patient was treated with IV antibiotics including Rocephin and clindamycin as well as Decadron. Patient was initially scheduled for incision and drainage on 12/02/16, however per ENT there was no longer any drainable abscess. It has been recommended to continue treatment with oral antibiotics and discharge patient with instruction to follow outpatient with ENT. She'll be discharged home on Augmentin 7 days. Pt Condition on Discharge: Stable Discharge Disposition: Discharge Home Discharge Time: <= 30 minutes Discharge Instructions DIET: Follow Instructions for: Heart Healthy Diet Activities you can perform: Regular-No Restrictions Follow up Referrals: Ear Nose Throat - 3-5 Days PCP Follow-up - 1 Week New Medications: Amoxicillin-Clavulanate (Augmentin) 875-125 Mg Tab 1 TAB PO BID for Infection, #14 TAB 0 Refills Hydrocodone-Acetaminophen ([place]) 7.5-325 mg Tab 1 TAB PO Q6H PRN for PAIN, #20 TAB 0 Refills Lawrence Cutris MD Dec 03, 2016 09:17
--- NOTE | 2016-12-03 11:01 | MP ---
cc: MARGARET ALDRICH M.D. DATE OF SURGERY December 02, [address] Margaret Aldrich PREOPERATIVE DIAGNOSIS Hypopharyngeal abscess. POSTOPERATIVE DIAGNOSIS Hypopharyngeal cellulitis. OPERATION PERFORMED Direct laryngoscopy. INDICATIONS Gricelda Crowder is a 21-year-old woman has been through 24 hours of IV antibiotic therapy for CT evidence of a developing abscess in the right hypopharynx. She states she is only mildly improved after this treatment, has continued pain in the focal area of the right hypopharynx, no airway compromise. DESCRIPTION OF OPERATION The patient was taken to OR #10 and placed in the supine position following induction of general anesthesia and intubation using a 6.0 endotracheal tube. A shoulder roll and a Med head drape were put in place along with dental guard put in place. Using a Dedo laryngoscope the hypopharynx and larynx were brought into view. There was no evidence of focal accumulation of purulent material. There was no significant erythema present in the hypopharynx. The hypopharynx and larynx were then examined bimanually. There is a palpable lymph node in the right superior jugular chain but no fluctuance. The scope was then used again to repeat examination of the hypopharynx and then, using an aspiration needle, attempt was made to drain the submucosal space in the right pyriform sinus, right base of tongue, right lateral pharyngeal wall and the right posterior wall. There was no purulent material forthcoming in any of these locations. The scope was then removed and the procedure was terminated. The patient was then reversed from anesthesia and taken to Recovery in good condition. There were no complications. Blood loss less than 10 mL. MD KIRSTY Johnston/OLVIN /7:10 AM /10:47 AM
== END 2016-12-03 09:39 | disposition home or self-care (01) | DRG 872 ==
LOC: NEPE 00:59 → NEDA 05:04 → NEPGCP 08:44 → N07B 12-02 15:13 → NEPGCP 12-02 15:36
PROVIDERS: ADMIT Hospitalist; ATTEND Hospitalist
PROC: 0CJS8ZZ Inspection of Larynx, Via Natural or Artificial Opening Endoscopic (ICD-10-PCS; principal; 2016-12-02 13:36)
DX: A41.9 Sepsis, unspecified organism (principal); J39.0 Retropharyngeal and parapharyngeal abscess; R13.10 Dysphagia, unspecified; Z53.9 Procedure and treatment not carried out, unspecified reason; Z87.891 Personal history of nicotine dependence; H61.22 Impacted cerumen, left ear; R59.0 Localized enlarged lymph nodes
CPT/HCPCS: 70491; 76536; 80048; 83605; 84439; 84443; 84702; 85025; 85610; 85730; 87081; 87880; 94002; 96365; 96367; 96375; J0131; J0696; J1100; J1885; J2250; J2270; J2405; J3010; J7030; Q9967